=== PATIENT | male | born 1945 | race Caucasian/White ===

== ENCOUNTER 2019-10-09 04:16 | Outpatient (CLI) | payer MEDICARE, BC | END 2019-10-09 23:59 | disposition home or self-care (01) | LOC: DIABETIC 04:16 | PROVIDERS: ATTEND Specialist | DX: E11.65 Type 2 diabetes mellitus with hyperglycemia (principal); Z79.4 Long term (current) use of insulin; Z79.899 Other long term (current) drug therapy | CPT/HCPCS: G0108 ==

== ENCOUNTER 2019-11-14 04:39 | Outpatient (CLI) | payer MEDICARE, BC | END 2019-11-14 23:59 | disposition home or self-care (01) | LOC: DIABETIC 04:39 | PROVIDERS: ATTEND Specialist | DX: E11.65 Type 2 diabetes mellitus with hyperglycemia (principal); Z79.4 Long term (current) use of insulin | CPT/HCPCS: G0108 ==

== ENCOUNTER 2024-12-18 21:50 | Inpatient (IN) | payer MEDICARE, BC ==
[~2024-12-18] VITALS: Ht 177.8 cm; Wt 88.0 kg
[2024-12-18 22:27] LABS: RED CELL DISTRIBUTION WIDTH 12.8 % (11.5-14.5)
[2024-12-18 22:29] LABS: BASOPHILS % (AUTO) 0.1 % (0-1); EOSINOPHILS # (AUTO) 0.1 X10'3 (0-0.9); HEMATOCRIT 37.2 % (42.0-52.0); HEMOGLOBIN 12.7 g/dl (14.0-17.9); LYMPHOCYTES % (AUTO) 8.4 % (21-51); MEAN CORPUSCULAR HEMOGLOBIN 33.7 PG (27.0-31.0); MEAN CORPUSCULAR HGB CONC 34.2 g/dL (33.0-36.5); MEAN CORPUSCULAR VOLUME 98.4 FL (78-98); MEAN PLATELET VOLUME 6.3 FL (7.4-10.4); MONOCYTES # (AUTO) 1.1 X10'3 (0-0.9); MONOCYTES % (AUTO) 9.4 % (2-12); NEUTROPHILS # (AUTO) 9.2 X10'3 (1.8-7.7); NEUTROPHILS % (AUTO) 81.1 % (42-75); PLATELET COUNT 270 X10'3 (140-440); RED BLOOD COUNT 3.78 X10'6 (4.70-6.10); WHITE BLOOD COUNT 11.4 X10'3 (4.5-11.0)
[2024-12-18 22:36] LABS: ALBUMIN 3.3 G/DL (3.4-5.0); ANION GAP 8 (8-16); BLOOD UREA NITROGEN 37 MG/DL (7-18); CALCIUM 8.7 MG/DL (8.5-10.1); CHLORIDE 98 MMOL/L (99-107); CREATININE 1.54 MG/DL (0.60-1.10); GLUCOSE 168 MG/DL (70-104); POTASSIUM 4.2 MMOL/L (3.5-5.1); SODIUM 132 MMOL/L (135-145); eCRCL 40 ML/MIN; eGFR 44 ML/MIN
[2024-12-18 23:39] LABS: BILIRUBIN,URINE NEGATIVE (Neg); CLARITY,URINE CLEAR (Clear); COLOR,URINE YELLOW (Yellow); GLUCOSE, URINE 250 mg/dl (Neg); KETONES,URINE NEGATIVE (Neg); LEUKOCYTE ESTERASE ,URINE NEGATIVE (Neg); NITRITES, URINE NEGATIVE (Neg); OCCULT BLOOD,URINE TRACE-INTACT (Neg); PH,URINE 5.5 (4.8-8.0); PROTEIN,URINE 100 mg/dl (Neg)
[2024-12-18 23:44] LABS: UA COLLECTION TYPE CLN CATCH MIDSTREAM
[2024-12-18 23:45] LABS: BACTERIA,URINE FEW /HPF (Neg); HYALINE CASTS 0-3 /LPF (NEGATIVE); RBC,URINE 0-2 /HPF (0-2); SQUAMOUS EPITHELIAL CELL,UR FEW /LPF (FEW); WBC,URINE 0-4 /HPF (0-4)
[2024-12-19] VITALS (7 sets, daily range): BP systolic 117–161; BP diastolic 45–64; PULSE 87–104; RESP 14–19; TEMP 98.1–99.8; O2SAT 95–97
[2024-12-19] MEDS: normal saline 1000ml 1,000 ML IV ONE (00:36)
[2024-12-19] MEDS ORDERED: TRAM50TA2 PO (02:13)
[2024-12-19] MEDS ORDERED: BACL10TA2 (02:13)
[2024-12-19] MEDS ORDERED: GABA-1405 (02:13)
[2024-12-19] MEDS ORDERED: DICL50TA6 (02:13)
[2024-12-19] MEDS ORDERED: magnesium sulf-water 2g/50mL 50 ML IV PRN (03:05)
[2024-12-19] MEDS ORDERED: magnesium sulf-water 4G/100mL 100 ML IV PRN (03:05)
[2024-12-19] MEDS ORDERED: mag hydrox/Alum hydrox/simeth 30ml oral suspension PO PRN (03:05)
[2024-12-19] MEDS ORDERED: magnesium hydroxide 30ml (MOM) UD suspension PO PRN (03:05)
[2024-12-19] MEDS ORDERED: ondansetron/PF 4mg/2ml inj IV PRN (03:05)
[2024-12-19] MEDS ORDERED: potassium Cl 40MEQ/1/2NS 520ml 520 ML IV PRN (03:05)
[2024-12-19] MEDS ORDERED: potassium Cl 20 mEq SR tablet PO PRN ×2 (03:05)
[2024-12-19] MEDS ORDERED: acetaminophen 325mg tablet PO PRN (03:05)
[2024-12-19] MEDS ORDERED: HYDROcodone/acetaminophen 5mg/325mg tablet PO PRN (03:05)
[2024-12-19] MEDS ORDERED: morphine 2 MG/ML inj. syringe IV PRN (03:05)
[2024-12-19] MEDS ORDERED: magnesium Cl slow-release 64mg tablet PO PRN (03:05)
[2024-12-19 03:43] LABS: HEMOGLOBIN A1C 9.4 % (4.5-6.2); MAGNESIUM 1.9 MG/DL (1.5-2.4)
[2024-12-19] MEDS: normal saline 1000ml 1,000 ML IV SCH (04:04)
[2024-12-19] MEDS: PERFLUTREN PROTEIN-A MICROSPHR (Optison) 0.22 MG/ML 3ML VIAL IV ONE (04:30)
[2024-12-19 05:34] LABS: ABG BASE EXCESS -0.3 mmol/L (-2.0-3.0); ABG HCO3 24.2 mmol/L (21.0-28.0); ABG PCO2 (T) 40.1 mmHg (35.0-48.0); ABG PO2 (T) 78.3 mmHg (83.0-108.0); FCOHb 0.2 % (0.5-1.5); FMetHb 0.3 % (0.0-1.5); FO2Hb 94.5 % (94.0-98.0); MODE ROOM AIR; PATIENT TEMPERATURE 37.6; TOTAL HEMOGLOBIN 11.7 G/dl (13.5-17.5)
[2024-12-19] MEDS ORDERED: glucagon, human recombinant 1mg kit SUBCUT PRN (07:55)
[2024-12-19] MEDS ORDERED: dextrose 50%-water 50ml dispensing syringe IV PRN ×2 (07:55)
[2024-12-19] MEDS ORDERED: DEXTROSE 15 GM of carb/4 tabs (each vial/BOTTLE has 4 tablets) PO PRN ×2 (07:55)
[2024-12-19] MEDS: K and/or MAG REPLACEMENT MC SCH (08:00)
[2024-12-19] MEDS: heparin, porcine 5000 units/ml vial SQ SCH (08:00)
[2024-12-19] MEDS: docusate sod 100mg capsule PO SCH (08:00)
[2024-12-19 09:23] LABS: BASOPHILS # (AUTO) 0.1 X10'3 (0-0.2); BASOPHILS % (AUTO) 1.1 % (0-1); EOSINOPHILS # (AUTO) 0.2 X10'3 (0-0.9); EOSINOPHILS % (AUTO) 1.6 % (0-6); HEMATOCRIT 34.2 % (42.0-52.0); HEMOGLOBIN 11.8 g/dl (14.0-17.9); LYMPHOCYTES # (AUTO) 1.2 X10'3 (1.1-4.8); LYMPHOCYTES % (AUTO) 11.9 % (21-51); MEAN CORPUSCULAR HEMOGLOBIN 34.1 PG (27.0-31.0); MEAN CORPUSCULAR HGB CONC 34.5 g/dL (33.0-36.5); MEAN CORPUSCULAR VOLUME 98.9 FL (78-98); MEAN PLATELET VOLUME 6.9 FL (7.4-10.4); MONOCYTES # (AUTO) 1.4 X10'3 (0-0.9); MONOCYTES % (AUTO) 13.3 % (2-12); NEUTROPHILS # (AUTO) 7.6 X10'3 (1.8-7.7); NEUTROPHILS % (AUTO) 72.1 % (42-75); PLATELET COUNT 222 X10'3 (140-440); RED BLOOD COUNT 3.46 X10'6 (4.70-6.10); RED CELL DISTRIBUTION WIDTH 12.9 % (11.5-14.5); WHITE BLOOD COUNT 10.5 X10'3 (4.5-11.0)
[2024-12-19 09:25] LABS: ALANINE AMINOTRANSFERASE 37 U/L (12-78); ALBUMIN 2.9 G/DL (3.4-5.0); ALBUMIN/GLOBULIN RATIO 0.7 (1.1-1.5); ALKALINE PHOSPHATASE 85 IU/L (46-116); ANION GAP 9 (8-16); ASPARTATE AMINO TRANSFERASE 32 U/L (10-37); BILIRUBIN,TOTAL 0.8 MG/DL (0.1-1.0); BLOOD UREA NITROGEN 34 MG/DL (7-18); BUN/CREATININE RATIO 28.3 (10.0-20.0); CALCIUM 8.4 MG/DL (8.5-10.1); CHLORIDE 101 MMOL/L (99-107); GLUCOSE 128 MG/DL (70-104); SODIUM 135 MMOL/L (135-145); eCRCL 52 ML/MIN; eGFR 58 ML/MIN
[2024-12-19 09:36] LABS: POTASSIUM 4.5 MMOL/L (3.5-5.1)
[2024-12-19] MEDS: INSULIN LISPRO 100 UNIT/ML INSULN.PEN MULTI-DOSE SQ SCH (12:48)
[2024-12-20] VITALS (7 sets, daily range): BP systolic 131–148; BP diastolic 47–65; PULSE 77–91; RESP 14–19; TEMP 96.9–100; O2SAT 80–99
[2024-12-20 06:57] LABS: BASOPHILS % (AUTO) 0.3 % (0-1); EOSINOPHILS # (AUTO) 0.2 X10'3 (0-0.9); EOSINOPHILS % (AUTO) 3.1 % (0-6); HEMATOCRIT 31.8 % (42.0-52.0); HEMOGLOBIN 11.1 g/dl (14.0-17.9); LYMPHOCYTES # (AUTO) 1.3 X10'3 (1.1-4.8); LYMPHOCYTES % (AUTO) 21.3 % (21-51); MEAN CORPUSCULAR HEMOGLOBIN 34.1 PG (27.0-31.0); MEAN CORPUSCULAR HGB CONC 34.7 g/dL (33.0-36.5); MEAN CORPUSCULAR VOLUME 98.3 FL (78-98); MEAN PLATELET VOLUME 6.3 FL (7.4-10.4); MONOCYTES # (AUTO) 0.9 X10'3 (0-0.9); MONOCYTES % (AUTO) 14.8 % (2-12); NEUTROPHILS # (AUTO) 3.7 X10'3 (1.8-7.7); NEUTROPHILS % (AUTO) 60.5 % (42-75); PLATELET COUNT 211 X10'3 (140-440); RED BLOOD COUNT 3.24 X10'6 (4.70-6.10); RED CELL DISTRIBUTION WIDTH 12.3 % (11.5-14.5); WHITE BLOOD COUNT 6.1 X10'3 (4.5-11.0)
[2024-12-20 07:41] LABS: ALBUMIN 2.5 G/DL (3.4-5.0); ANION GAP 11 (8-16); BLOOD UREA NITROGEN 18 MG/DL (7-18); BUN/CREATININE RATIO 18.9 (10.0-20.0); CALCIUM 8.3 MG/DL (8.5-10.1); CHLORIDE 103 MMOL/L (99-107); CHOL/HDL RATIO 3.7 (0.00-4.99); CHOLESTEROL 189 MG/DL (0-200); CREATININE 0.95 MG/DL (0.60-1.10); GLUCOSE 159 MG/DL (70-104); HDL CHOLESTEROL 51 MG/DL (35-60); LDL CHOLESTEROL 123 MG/DL (50-100); POTASSIUM 3.9 MMOL/L (3.5-5.1); SODIUM 136 MMOL/L (135-145); TOTAL CARBON DIOXIDE 22.4 MMOL/L (24-32); TRIGLYCERIDES 82 MG/DL (20-135); eCRCL 65 ML/MIN; eGFR 76 ML/MIN
[2024-12-20 09:56] LABS: MAGNESIUM 1.8 MG/DL (1.5-2.4)
[2024-12-20] MEDS: CefTRIAXone/D5W-Rocephin 1gm 50 ML IV ONE (10:25)
[2024-12-20] MEDS: insulin glargine (Lantus) pen - multi-dose SQ SCH (23:13)
[2024-12-21 02:00] VITALS: BP 129/47; PULSE 75; RESP 20; TEMP 97.4; O2SAT 97
[2024-12-21 06:00] VITALS: BP 144/64; PULSE 78; RESP 18; TEMP 97.9; O2SAT 98
[2024-12-21 06:02] LABS: BASOPHILS % (AUTO) 0.3 % (0-1); EOSINOPHILS # (AUTO) 0.3 X10'3 (0-0.9); EOSINOPHILS % (AUTO) 4.2 % (0-6); HEMATOCRIT 31.7 % (42.0-52.0); HEMOGLOBIN 10.8 g/dl (14.0-17.9); LYMPHOCYTES # (AUTO) 1.7 X10'3 (1.1-4.8); MEAN CORPUSCULAR HEMOGLOBIN 33.5 PG (27.0-31.0); MEAN CORPUSCULAR HGB CONC 34.2 g/dL (33.0-36.5); MEAN CORPUSCULAR VOLUME 98.2 FL (78-98); MEAN PLATELET VOLUME 6.3 FL (7.4-10.4); MONOCYTES # (AUTO) 0.9 X10'3 (0-0.9); MONOCYTES % (AUTO) 13.4 % (2-12); NEUTROPHILS # (AUTO) 3.7 X10'3 (1.8-7.7); NEUTROPHILS % (AUTO) 56.1 % (42-75); PLATELET COUNT 196 X10'3 (140-440); RED BLOOD COUNT 3.23 X10'6 (4.70-6.10); RED CELL DISTRIBUTION WIDTH 12.2 % (11.5-14.5); WHITE BLOOD COUNT 6.5 X10'3 (4.5-11.0)
[2024-12-21 06:24] LABS: ALBUMIN 2.3 G/DL (3.4-5.0); ANION GAP 7 (8-16); BLOOD UREA NITROGEN 21 MG/DL (7-18); BUN/CREATININE RATIO 22.8 (10.0-20.0); CALCIUM 8.3 MG/DL (8.5-10.1); CHLORIDE 106 MMOL/L (99-107); CREATININE 0.92 MG/DL (0.60-1.10); GLUCOSE 162 MG/DL (70-104); MAGNESIUM 2.3 MG/DL (1.5-2.4); POTASSIUM 3.9 MMOL/L (3.5-5.1); SODIUM 138 MMOL/L (135-145); TOTAL CARBON DIOXIDE 24.9 MMOL/L (24-32); eCRCL 67 ML/MIN; eGFR 79 ML/MIN
[2024-12-21 08:00] VITALS: RESP 18; O2SAT 98
[2024-12-21] MEDS: CefTRIAXone/D5W-Rocephin 1gm 50 ML IV SCH (10:39)
[2024-12-21] MEDS ORDERED: NEED-136 SUBCUT (14:24)
[2024-12-21] MEDS ORDERED: INSU100I99 SQ (14:24)
== END 2024-12-21 15:27 | disposition home health service (06) | DRG 682 ==
LOC: ER 21:51 → ED HOLD 12-19 02:38 → PCU 3S 12-19 07:10
PROVIDERS: ADMIT Internal Medicine Critical Care Medicine; ATTEND Family Medicine
PROC: B32T1ZZ Computerized Tomography (CT Scan) of Left Pulmonary Artery using Low Osmolar Contrast (ICD-10-PCS; principal; 2024-12-19)
PROC: B3201ZZ Computerized Tomography (CT Scan) of Thoracic Aorta using Low Osmolar Contrast (ICD-10-PCS; 2024-12-19)
PROC: B32S1ZZ Computerized Tomography (CT Scan) of Right Pulmonary Artery using Low Osmolar Contrast (ICD-10-PCS; 2024-12-19)
DX: N17.0 Acute kidney failure with tubular necrosis (principal); G93.41 Metabolic encephalopathy; K50.90 Crohn's disease, unspecified, without complications; E86.0 Dehydration; M54.9 Dorsalgia, unspecified; Z20.822 Contact with and (suspected) exposure to COVID-19; Z66 Do not resuscitate; G47.33 Obstructive sleep apnea (adult) (pediatric); D72.823 Leukemoid reaction; E11.9 Type 2 diabetes mellitus without complications; Z79.899 Other long term (current) drug therapy
CPT/HCPCS: 36415; 36600; 70450; 70544; 70551; 71045; 71275; 72040; 72070; 72100; 73522; 73552; 80048; 80053; 80061; 81001; 82803; 82948; 83036; 83605; 83735; 84145; 85018; 85025; 87040; 87081; 87502; 87503; 87811; 92508; 92616; 93005; 93306; 97116; 97161; 97530; 99285; A6258; G0378; J0696; J1644; J1815; J7030